=== PATIENT | female | born 1945 | race Caucasian/White ===

== ENCOUNTER → 2019-03-13 | Outpatient (CLI) | payer OTHER ==
[~2019-03-13] MED LIST: ASPIRIN325 PO; CELEXA20 MG PO; HYDROCHLOROTH12.5 M1 PO; HYDROCODONE-AP1 EAC6 PO; IMDUR 30 MG TAB30 M1 PO; LEVOTHYROXINE0.05 MG PO; LISINOPRIL10 MG PO; NORVASC5 MG PO; OMEGA-31000 M1 PO; PRILOSEC 10MG C10 MG PO; TENORMIN50 MG PO; TRICOR145 MG PO; WELCHOL 625 MG625 M1 PO
== END ==
LOC: M.RAD 09:53
DX: Z12.31 Encounter for screening mammogram for malignant neoplasm of breast (principal)

== ENCOUNTER → 2019-05-26 | Outpatient (CLI) | payer OTHER | LOC: M.LAB 04:56 | DX: E87.6 Hypokalemia (principal) ==

== ENCOUNTER → 2019-09-29 | Outpatient (CLI) | payer OTHER | LOC: M.MRI 08:43 | DX: M51.37 Other intervertebral disc degeneration, lumbosacral region (principal); M51.27 Other intervertebral disc displacement, lumbosacral region; M12.88 Other specific arthropathies, not elsewhere classified, other specified site; M48.062 Spinal stenosis, lumbar region with neurogenic claudication ==

== ENCOUNTER 2020-02-15 08:38 | Emergency (ER) | payer OTHER ==
[~2020-02-15] VITALS: Ht 154.9 cm; Wt 89.8 kg
[2020-02-15] MEDS ORDERED: LIPITOR80 MG PO (08:51)
[2020-02-15] MEDS ORDERED: WELCHOL 625 MG625 M1 PO (08:52)
[2020-02-15] MEDS ORDERED: VITAMIN D310 MC2 PO (08:52)
[2020-02-15] MEDS ORDERED: CARVEDILOL25 MG PO (08:52)
[2020-02-15] MEDS ORDERED: COLACE100 MG PO (08:52)
[2020-02-15] MEDS ORDERED: FUROSEMIDE 40 M40 MG PO (08:53)
[2020-02-15] MEDS ORDERED: ZETIA10 MG PO (08:53)
[2020-02-15] MEDS ORDERED: XARELTO20 MG PO (08:53)
[2020-02-15] MEDS ORDERED: MICARDIS 80 MG80 MG PO (08:53)
[2020-02-15] MEDS ORDERED: EFFER-K 20 MEQ20 ME1 PO (08:53)
[2020-02-15 11:34] VITALS: BP 115/70
== END 2020-02-15 11:34 | disposition home or self-care (01) ==
LOC: M.ERS 08:38
DX: S80.12XA Contusion of left lower leg, initial encounter (principal); M19.90 Unspecified osteoarthritis, unspecified site; Z88.2 Allergy status to sulfonamides; Z88.8 Allergy status to other drugs, medicaments and biological substances; Z90.710 Acquired absence of both cervix and uterus; X58.XXXA Exposure to other specified factors, initial encounter; Y93.89 Activity, other specified; Y92.89 Other specified places as the place of occurrence of the external cause; Y99.8 Other external cause status

== ENCOUNTER → 2020-12-16 | Outpatient (CLI) | payer OTHER ==
[~2020-12-16] MED LIST changes: +CARVEDILOL25 MG PO; +COLACE100 MG PO; +EFFER-K 20 MEQ20 ME1 PO; +FUROSEMIDE 40 M40 MG PO; +LIPITOR80 MG PO; +MICARDIS 80 MG80 MG PO; +VITAMIN D310 MC2 PO; +XARELTO20 MG PO; +ZETIA10 MG PO
[2020-12-16 08:33] LABS: CREATININE 0.8 mg/dL (0.6-1.3)
== END ==
LOC: M.LAB 08:00 → M.CT 09:00
DX: R22.1 Localized swelling, mass and lump, neck (principal); E04.2 Nontoxic multinodular goiter; I25.10 Atherosclerotic heart disease of native coronary artery without angina pectoris